=== PATIENT | male | born 1985 | race Caucasian/White ===

== ENCOUNTER 2016-12-25 23:36 | Emergency (ER) | payer OTHER ==
[~2016-12-25] VITALS: Ht 193 cm; Wt 149.7 kg
[~2016-12-25 23:36] MED LIST: LOSA50TA6
[2016-12-26 00:51] VITALS: BP 153/101
[2016-12-26] MEDS ORDERED: IBUPROFEN 800 MG TAB PO ONE (02:15)
== END 2016-12-26 02:12 | disposition home or self-care (01) ==
LOC: ER 23:41
DX: S90.32XA Contusion of left foot, initial encounter (principal); W04.XXXA Fall while being carried or supported by other persons, initial encounter; Y93.89 Activity, other specified; Y99.8 Other external cause status; Y92.89 Other specified places as the place of occurrence of the external cause
CPT/HCPCS: 73630

== ENCOUNTER 2017-07-13 19:17 | Emergency (ER) | payer OTHER ==
[~2017-07-13] VITALS: Ht 193 cm; Wt 107.5 kg
[2017-07-13 19:37] VITALS: BP 167/89
[2017-07-13] MEDS ORDERED: LIDOCAINE 1% HCL (LOCAL ANESTH.) INJ 20ML MDV IJ ONE (22:30)
[2017-07-13] MEDS ORDERED: BACITRACIN TOP OINT 1 UD PKG TOP ONE (22:30)
== END 2017-07-13 22:49 | disposition home or self-care (01) ==
LOC: ER 19:20
DX: S61.214A Laceration without foreign body of right ring finger without damage to nail, initial encounter (principal); I10 Essential (primary) hypertension; Z87.442 Personal history of urinary calculi; W26.8XXA Contact with other sharp object(s), not elsewhere classified, initial encounter; Y93.89 Activity, other specified; Y99.8 Other external cause status; Y92.89 Other specified places as the place of occurrence of the external cause
CPT/HCPCS: 12001; 99283; J2001

== ENCOUNTER 2017-09-29 13:06 | Emergency (ER) | payer OTHER ==
[~2017-09-29] VITALS: Ht 193 cm; Wt 146.5 kg
[2017-09-29 13:29] VITALS: BP 176/114
[2017-09-29] MEDS: ONDANSETRON HCL 4 MG/2 ML VIAL IM ONE (14:10)
[2017-09-29] MEDS: MORPHINE SULFATE 4 MG/ML SYRG IM ONE (14:11)
== END 2017-09-29 14:46 | disposition home or self-care (01) ==
LOC: ER 13:06
DX: S83.92XA Sprain of unspecified site of left knee, initial encounter (principal); I10 Essential (primary) hypertension; G89.29 Other chronic pain; M25.562 Pain in left knee; Z87.442 Personal history of urinary calculi; Z79.899 Other long term (current) drug therapy; X58.XXXA Exposure to other specified factors, initial encounter; Y93.89 Activity, other specified; Y92.89 Other specified places as the place of occurrence of the external cause; Y99.8 Other external cause status
CPT/HCPCS: 73562; 73700; 96372; 99284; J2270; J2405

== ENCOUNTER 2018-02-23 02:45 | Emergency (ER) | payer OTHER ==
[~2018-02-23] VITALS: Ht 193 cm; Wt 154.2 kg
[2018-02-23 03:18] LABS: Basophils # (auto) 0.1 uL; Basophils % (auto) 0.5 % (0.0-2.0); Eosinophils # (auto) 0.2 uL; Eosinophils % (auto) 2.2 % (0.0-7.0); Hematocrit 44.4 % (41.0-53.0); Lymphocytes # (auto) 4.2 uL; Lymphocytes % (auto) 39.7 % (10.0-50.0); Mean Corpuscular Hemoglobin 29.8 pg (28.0-32.0); Mean Corpuscular Hgb Conc. 33.8 g/dL (32.0-36.0); Mean Corpuscular Volume 88.1 fL (80.0-100.0); Monocytes % (auto) 9.3 % (0.0-12.0); Neutrophils # (auto) 5.2 uL; Neutrophils % (auto) 48.3 % (37.0-80.0); Nucleated Red Blood Cells % 0.1 %; Platelet Count (auto) 268 10^3/uL (140-450); Red Blood Cells 5.04 10^6/uL (4.5-5.90); Red Cell Distribution Width 14.3 % (11.8-14.3); White Blood Cell 10.7 10^3/uL (4.4-10.8)
[2018-02-23 03:32] LABS: INR 0.91 (0.9-1.15); Partial Thromboplastin Time 24.9 sec (22.64-33.71); Prothrombin Time 9.9 sec (9.37-12.3)
[2018-02-23 03:35] LABS: Alanine Aminotransferase 34 U/L (16-61); Albumin 3.5 g/dL (3.4-5.0); Amylase 27 U/L (25-115); Anion Gap 11 (5-15); Aspartate Aminotransferase 14 U/L (15-37); BUN/Creatinine Ratio 12.5; Blood Urea Nitrogen 12 mg/dL (7-18); Calcium 8.8 mg/dL (8.5-10.1); Carbon Dioxide 27 mmol/L (21-32); Chloride 101 mmol/L (98-107); GFR African American 118 mL/min; GFR Non-African American 98 mL/min; Glucose 112 mg/dL (74-106); Lipase 84 U/L (73-393); Magnesium 2.2 mg/dL (1.6-2.6); Potassium 3.3 mmol/L (3.5-5.1); Sodium 139 mmol/L (136-145)
[2018-02-23 03:41] LABS: Alkaline Phosphatase 52 U/L (45-117); Bilirubin, Total 0.3 mg/dL (0.2-1.0); Total Protein 7.9 g/dL (6.4-8.2)
[2018-02-23 07:46] VITALS: BP 129/84
== END 2018-02-23 08:45 | disposition home or self-care (01) ==
LOC: ER 02:45 → EDBD 02:45 → ER 08:45
DX: R10.9 Unspecified abdominal pain (principal); I10 Essential (primary) hypertension; Z87.442 Personal history of urinary calculi
CPT/HCPCS: 36415; 71045; 74176; 80053; 82150; 83690; 83735; 83880; 84484; 85025; 85610; 85730; 93005